=== PATIENT | male | born 1985 | race Caucasian/White ===

== ENCOUNTER 2022-10-03 19:56 | Emergency (ER) | payer MEDICAID ==
[~2022-10-03] VITALS: Ht 170.2 cm; Wt 104.3 kg
[2022-10-03 20:26] VITALS: BP_SYST 142
== END 2022-10-03 22:17 | disposition left against medical advice (07) ==
LOC: SED 19:56
DX: R05.9 Cough, unspecified (principal); R09.81 Nasal congestion; Z53.21 Procedure and treatment not carried out due to patient leaving prior to being seen by health care provider